=== PATIENT | female | born 1950 | race Caucasian/White ===

== ENCOUNTER 2021-06-20 06:56 | Day surgery (SDC) | payer OTHER ==
[~2021-06-20] VITALS: Ht 167.6 cm; Wt 80.7 kg
[~2021-06-20 06:56] MED LIST: LOSARTAN-HCTZ1 EAC2 PO; PEPCID40 MG PO; PROTONIX40 M2 PO; TRAZODONE HCL50 MG PO; VITAMIN D375 MCG PO; VITAMIN E1000 UNIT PO
[2021-06-20 08:27] LABS: HEMATOCRIT 42.4 % (37.0-47.0); HEMOGLOBIN 13.9 gm/dL (12.0-15.0)
[2021-06-20 08:34] VITALS: BP 120/66
[2021-06-20 08:38] LABS: CREATININE 0.8 mg/dL (0.6-1.0); POTASSIUM 4.3 mmol/L (3.5-5.1)
--- NOTE | 2021-06-20 13:22 | O ---
[facility] [place] [address] OPERATIVE REPORT Name: ARTIE PENA Room #: [facility] M.R.#: [id number] Admission: 06/20/21 Attend Phys: Cassidy Rosario MD, Discharge: Date of : 48 Report #: [id number] THIS REPORT FOR: cc: Anthony Mayorga Gregg R. DO Soliman,Cassidy Foote MD FACS ~ DATE OF SERVICE: 06/20/2021 PREOPERATIVE DIAGNOSES: 1. Hiatal hernia. 2. Medically recalcitrant gastroesophageal reflux disease. POSTOPERATIVE DIAGNOSES: 1. Type 4 paraesophageal hernia. 2. Medically recalcitrant gastroesophageal reflux disease. PROCEDURES PERFORMED: 1. Laparoscopic repair of a type 4 paraesophageal hernia with cruroplasty and bioresorbable mesh buttressing. 2. Thorough esophagogastroduodenoscopy (EGD). SURGEON: Cassidy Rosario MD ACTUARIAL CONSULTANT: THOMAS Ricardo. ANESTHESIA: General endotracheal anesthesia. ESTIMATED BLOOD LOSS: Minimal (less than 5 mL). COMPLICATIONS: None appreciated. SPECIMENS: None. INDICATIONS: The patient is a 71-year-old female with a longstanding history of medically recalcitrant GERD, who has been found to have a very large hiatal hernia nearing 8 cm on endoscopy and slightly abnormal motility. After thorough consultation with the patient and the GI Service, the decision was made to proceed with a laparoscopic hiatal hernia repair only today with subsequent outpatient TIF if she has ongoing medically recalcitrant GERD. DESCRIPTION OF PROCEDURE: After explaining the risks, benefits and alternatives of the procedure with the patient in detail in the preoperative holding area and obtaining consent, the patient was brought to the operating room and placed supine on the operating room table. After conducting a thorough timeout procedure verifying correct patient and procedure, the patient was given general endotracheal anesthesia. Once adequate anesthesia was obtained, her SCDs were [facility] [address] [place] [address] OPERATIVE REPORT Name: ARTIE PENA Room #: [facility] M.R.#: [id number] Admission: 06/20/21 Attend Phys: Cassidy Rosario MD, Discharge: Date of : 48 Report #: [id number] hooked up to a pneumatic compression device and she was given a preoperative dose of antibiotics in line with the SCIP protocol. The patient's abdomen was now prepped and draped in the standard surgical sterile fashion after positioning her in the low lithotomy position with her legs in the Yellofin stirrups. A 5 mL of 0.5% Marcaine with epinephrine were used to anesthetize the skin in the right upper quadrant midclavicular line in subcostal location. A #15 bladed scalpel was used to create a small skin kiara at this location. A 5 mm Visiport was placed over 0-degree 5 mm laparoscope and was introduced through this incision site. Once intraabdominal placement was verified visually, the obturator for the trocar and laparoscope were both removed and the abdomen was insufflated to 15 mmHg using carbon dioxide gas. The laparoscope was changed to a 5 mm 30-degree laparoscope, which was reintroduced through this trocar. The entire abdomen was evaluated to ensure no injury upon entry. I now placed 3 additional trocars in the left mid abdomen. The first port was a 5 mm port placed 3 cm cephalad of the umbilicus and 1 cm to the patient's left, the next one was a 12 mm port placed 5 cm lateral to that, and the final one was another 5 mm port in extreme left lateral flank. All three additional ports were placed under direct vision after anesthetizing the skin at each location with 5 mL of 0.5% Marcaine with epinephrine. I created small skin nicks using #15 bladed scalpel. The laparoscope was removed and changed to the 5 mm port just cephalad of the umbilicus and the patient was placed in reverse Trendelenburg position. I now placed a Manav liver retractor in the subxiphoid location under direct vision in standard fashion, which was positioned up under the left lobe of the liver and held up against the posterior aspect of the anterior abdominal wall. This was then fixed into position using the iron purchasing internship device to stabilize it. We had complete access to the stomach and hiatal regions. We saw evidence of a type 4 paraesophageal hernia with both superior one-half of the stomach as well as a large amount of omentum contained within the mediastinum. I was able to reduce the omentum with gentle manual traction and now started my dissection. I opened the pars flaccida using Harmonic scalpel to identify the base of the right yandel. I dissected anteriorly up the right yandel with Harmonic scalpel for hemostasis. The stomach was reflected to the patient's right side and identified the base of the left crease and in similar fashion dissected anteriorly up the left yandel with Harmonic scalpel for hemostasis. The stomach was normalized and reflected anteriorly and inferiorly and I was able to create a window in the retroesophageal space from the patient's right to left side using blunt dissection, through which a Verna drain was pulled. The tails of the Verna drain were mated anteriorly to be used as a handle for inferior and anterior traction on the gastroesophageal tissues without actually grabbing the tissues themselves to prevent injury. I now carried down extensive mediastinal dissection taking down all adhesions in the mediastinum as far cephalad as possible with the Harmonic scalpel, staying well away from all gastroesophageal tissues to prevent injury from thermal spread. The anterior and posterior vagus nerves were conclusively identified, preserved and uninjured throughout. Once I had completed the extensive mediastinal dissection, I had approximately 4 cm of [facility] [address] [place] [address] OPERATIVE REPORT Name: ARTIE PENA Room #: [facility] M..#: [id number] Admission: 06/20/21 Attend Phys: Cassidy Rosario MD, Discharge: Date of : 48 Report #: [id number] intraabdominal esophagus that was not under traction to attempt to recoil back up into the mediastinum. I now repaired the hiatal defect from the type 4 paraesophageal hernia posteriorly using several sutures of 0 Surgidac on the EndoStitch device to recreate the slit valve aspect of the lower esophageal sphincter complex without undue tightness on the esophagus itself. This was buttressed using a piece of 6 x 8 cm OviTex bioresorbable mesh. After appropriate hydration, U-shaped notch was cut out of it and was entered into the abdomen, whereby anchored it to the diaphragmatic repair using sutures of 0 Surgidac on each anterior leaflet as well as 1 suture posteriorly to the cruroplasty. A 10 mL of Tisseel on a Pristine.io spray device were now used to weld the entirety of the mesh to the diaphragmatic repair, so it conformed nicely. Photodocumentation of all the above was taken and provided to the patient and the permanent medical record. Now that we were finished with the procedure, the Verna drain was removed and I closed the 12 mm fascial incision using 0 PDS suture on a Sanchez-Azeem suture passer device. I tied this down under direct vision to ensure I did not catch a loop of bowel or omentum in the suture repair. The patient was now leveled out and I proceeded to perform an EGD. The Sleepy's upper endoscope was used to intubate the oropharynx and was traversed down a straight esophagus and easily through the hiatal repair into the gastric lumen on several occasions without tension or undue tightness. The stomach was fully desufflated. The scope was removed, passed off the field. The Manav liver retractor was now removed and the liver was healthy and uninjured. The abdomen was fully desufflated. All trocars were removed under direct vision. A 4-0 Monocryl was used in a standard subcuticular fashion for all skin incisions and Dermabond glue was applied to all skin wounds. At the end of the procedure, all instrument, needle and sponge counts were correct. The patient tolerated the procedure without incident, was awakened in the operating room and transitioned to the recovery room in stable condition with no apparent complications. <ELECTRONICALLY SIGNED> By: Cassidy Rosario MD, FACS 06/20/21 1322 [id number] Cassidy Rosario MD, FACS /nt
--- NOTE | 2021-06-20 17:37 | NUR ---
ASSUMED CARE OVER PATIENT AT 1506. C/O PAIN IN SHOULDER RADIATING TO BACK AND CHEST. STARTED IV FLUIDS ON PT AND ADMINISTERED IV PAIN MEDICATION AND IV NAUSEA MEDS. FINISHED ADMISSION ASSESMENT AND HISTORY. PATIENT UP TO BEDSIDE COMMODE AND VOIDING WITH NO ISSUES. PT AMBULATING WITH STAND BY ASSIST IN ROOM TO DECREASE GAS PAIN.
[2021-06-20 19:51] VITALS: BP 129/72
[2021-06-21 03:59] LABS: HEMATOCRIT 40.2 % (37.0-47.0); MCH 30.7 pg (26.0-34.0); MCHC 32.2 g/dL (28.0-37.0); MCV 95.4 fL (80.0-100.0); RBC 4.22 mil/uL (4.20-5.00); WBC 19.2 thou/uL (4.0-11.0)
[2021-06-21 05:12] LABS: CALCIUM 9.8 mg/dL (8.5-10.1); POTASSIUM 4.7 mmol/L (3.5-5.1)
--- NOTE | 2021-06-21 05:12 | NUR ---
Pt. rested quietly at intervals during the night when checked on during frequent rounds. She has ambulated to the bathroom and voided with standy by assistance. Pain meds given for c/o back pain with some relief noted (see emar).
[2021-06-21 07:10] VITALS: BP 99/57
[2021-06-21 07:47] VITALS: BP 99/57
--- NOTE | 2021-06-21 10:36 | NUR ---
A/O X 4. ROOM AIR. STAND BY ASSIST WITH TRANSERS. HYPOACTIVE BOWEL SOUNDS, 4 ABD LAPSITES DERMABOND TO SITES, LEFT AC D/C'D FOR D/C TODAY, PATIENT HAD D5 1/2 NS 20 MEQ K INFUSING @ 80 MLS/HR, SCDS/TEDS ON, PILLS CHRUSHED IN APPLESAUCE PER REQUEST, WILL D/C HOME TODAY WITH
== END 2021-06-21 11:26 | disposition home or self-care (01) ==
LOC: OR 06:56 → 4S 14:14 → OR 14:46
PROVIDERS: ATTEND Surgery
DX: K44.9 Diaphragmatic hernia without obstruction or gangrene (principal); K21.9 Gastro-esophageal reflux disease without esophagitis; I10 Essential (primary) hypertension; Z98.890 Other specified postprocedural states; Z79.899 Other long term (current) drug therapy; Z90.710 Acquired absence of both cervix and uterus; Z98.41 Cataract extraction status, right eye; Z98.42 Cataract extraction status, left eye
CPT/HCPCS: 50010; 50101; 50386; 50555; 51437; 52182; 52205; 52265; 53307; 54022; 54118; 55326; 56462; 56525; 56526; 56531; 57092; 58574; 58911; 59088; 62110; 62900; 70005